=== PATIENT | female | born 1970 | race Caucasian/White ===

== ENCOUNTER 2023-03-29 18:28 | Emergency (ER) | payer OTHER ==
[~2023-03-29] VITALS: Ht 149.9 cm; Wt 60.3 kg
[2023-03-29 19:00] VITALS: BP 183/103; PULSE 79; RESP 16; TEMP 97.3; O2SAT 100
[2023-03-29] MEDS ORDERED: ACET-8905 PO (20:05)
[2023-03-29] MEDS ORDERED: IBUP-2213 PO (20:05)
[2023-03-29 20:18] VITALS: BP 162/88; PULSE 75; RESP 16; TEMP 97.6; O2SAT 99
== END 2023-03-29 20:16 | disposition home or self-care (01) ==
LOC: MED 18:28
DX: R20.0 Anesthesia of skin (principal); M54.6 Pain in thoracic spine; M54.2 Cervicalgia; M79.601 Pain in right arm; I10 Essential (primary) hypertension; F17.210 Nicotine dependence, cigarettes, uncomplicated; Z98.890 Other specified postprocedural states
CPT/HCPCS: 93005; 99283